=== PATIENT | female | born 1955 | race Caucasian/White ===

== ENCOUNTER 2023-01-13 05:48 | Inpatient (IN) | payer BC ==
[2023-01-07 15:13] LABS: EOSINOPHILS # (AUTO) 0.2 X10'3 (0-0.9); EOSINOPHILS % (AUTO) 4.5 % (0-6); LYMPHOCYTES # (AUTO) 1.7 X10'3 (1.1-4.8); LYMPHOCYTES % (AUTO) 37.4 % (21-51); MEAN CORPUSCULAR HEMOGLOBIN 32.3 PG (27.0-31.0); MEAN CORPUSCULAR HGB CONC 33.8 g/dL (33.0-36.5); MEAN CORPUSCULAR VOLUME 95.6 FL (78-98); MEAN PLATELET VOLUME 8.5 FL (7.4-10.4); MONOCYTES # (AUTO) 0.4 X10'3 (0-0.9); MONOCYTES % (AUTO) 7.9 % (2-12); NEUTROPHILS # (AUTO) 2.3 X10'3 (1.8-7.7); NEUTROPHILS % (AUTO) 49.2 % (42-75); PRE OP HEMATOCRIT 37.1 % (35.0-45.0); PRE OP HEMOGLOBIN 12.5 g/dL (12.0-16.0); PRE OP PLATELET COUNT 167 X10'3 (140-440); RED BLOOD COUNT 3.88 X10'6 (4.20-5.60); RED CELL DISTRIBUTION WIDTH 13.9 % (11.5-14.5)
[2023-01-07 15:29] LABS: ALBUMIN 4.1 G/DL (3.4-5.0); ALBUMIN/GLOBULIN RATIO 1.4 (1.1-1.5); ALKALINE PHOSPHATASE 58 IU/L (46-116); BLOOD UREA NITROGEN 19 MG/DL (7-18); BUN/CREATININE RATIO 37.3 (10.0-20.0); CALCIUM 8.8 MG/DL (8.5-10.1); CHLORIDE 106 MMOL/L (99-107); CREATININE 0.51 MG/DL (0.40-0.90); PRE OP ANION GAP 6 (8-16); PRE OP AST 15 U/L (10-37); PRE OP BILIRUB, TOTAL 0.5 MG/DL (0.0-1.0); PRE OP GLUCOSE 91 MG/DL (70-104); PRE OP POTASSIUM 4.1 MMOL/L (3.4-5.1); PRE OP SODIUM 140 MMOL/L (135-145); TOTAL CARBON DIOXIDE 27.9 MMOL/L (24-32); TOTAL PROTEIN 7.1 G/DL (6.4-8.2); eGFR > 90 ML/MIN
[2023-01-07 15:47] LABS: PRE OP ALT 7 U/L (30-65)
[2023-01-13] VITALS (25 sets, daily range): BP systolic 93–127; BP diastolic 38–66
[~2023-01-13] VITALS: Ht 157.5 cm; Wt 54.3 kg
[~2023-01-13 05:48] MED LIST: ALBU18HF2 INH; ALEN70TA37 PO; CARB-321 PO; CARB-395 PO; CHOL200074 PO; FLUT12AE9 PO; MAGN250T11 PO; MULT-1189 PO; ONDA4TAB12 PO; POLY119P2 PO; albuterol 2.5 MG/3 ML nebule NEB ONE; clindamycin-Cleocin 900mg/D5W 50 ML IV ONE; famotidine 20mg tablet PO ONE; ringers solution, lacted 1,000 ML IV SCH
[2023-01-13] MEDS ORDERED: BUPIVAcaine/PF 2.5 mg/ml (0.25%) 30ml vial ONE ×2 (06:41→07:02)
[2023-01-13] MEDS ORDERED: BUPIVACAINE liposomal/PF 13.3 MG/ML vial IM ONE (07:02)
[2023-01-13] MEDS ORDERED: midazolam 1 mg/ML 2ml injection ONE (07:40)
[2023-01-13] MEDS ORDERED: fentaNYL/PF 50MCG/1 ML 2ML syringe ONE (07:40)
[2023-01-13] MEDS ORDERED: propofol inj 20 ML IV ONE (07:41)
[2023-01-13] MEDS ORDERED: rocuronium 10mg/ml inj IV ONE (07:42)
[2023-01-13] MEDS ORDERED: dexamethasone sod phosphate 4mg/ml inj. ONE (07:48)
[2023-01-13] MEDS ORDERED: ringers solution, lacted 1,000 ML IV SCH (08:50)
[2023-01-13] MEDS ORDERED: meperidine/PF 25mg/ml syringe IV PRN ×2 (08:50)
[2023-01-13] MEDS ORDERED: proCHLORperazine 10 MG/2 ml inj IV PRN (08:50)
[2023-01-13] MEDS ORDERED: morphine 2 MG/ML inj. syringe IV PRN (08:50)
[2023-01-13] MEDS ORDERED: morphine 4 MG/ML inj SYRINge IV PRN (08:50)
[2023-01-13] MEDS ORDERED: ondansetron/PF 4mg/2ml inj IV PRN (08:50)
[2023-01-13] MEDS ORDERED: LIDOcaine-PF 1% 20mL vial 20 ML VIAL IJ ONE (10:00)
[2023-01-13] MEDS ORDERED: ondansetron/PF 4mg/2ml inj ONE (10:09)
[2023-01-13] MEDS ORDERED: acetaminophen 1,000mg/100ml IV 100 ML IV ONE (10:09)
[2023-01-13] MEDS ORDERED: sugammadex 200mg/2ml injection IV ONE (10:12)
[2023-01-13] MEDS: meperidine/PF 25mg/ml syringe IV PRN ×4 (10:32→19:07)
--- NOTE | 2023-01-13 10:35 | NUR ---
Received from OR via [facility], accompanied by Anesthesiologist DR DIANA and report given by Anesthesiologist. PT IS GROGGY BUT RESPONDS TO VERBAL STIMULI. PT PLACED ON BEDSIDE MONITOR, VSS. PT IS IN SR WITH RATE IN 80'S. PT RECEIVING 8L O2 TO MASK, TOLERATING WELL WITH O2 SAT >96%. WILL TITRATE DOWN AT PT TOLERATES. PT HAS 20G PIV TO LEFT FA WITH LR INFUSING ORDERED. PT HAS BANDAIDS TO LEFT ABD WITH ABD IN PLACE AND CDI. PT IS RESTING WITH NO S/S OF DISTRESS NOTED AT THIS TIME. WILL CONTINUE TO ASSESS.
[2023-01-13] MEDS ORDERED: naloxone 0.4 mg/ml inj IV PRN (10:45)
[2023-01-13] MEDS ORDERED: normal saline 1000ml 1,000 ML IV SCH (10:45)
[2023-01-13] MEDS: ringers solution, lacted 1,000 ML IV SCH ×3 (10:45→20:45)
[2023-01-13] MEDS ORDERED: albuterol 2.5 MG/3 ML nebule NEB PRN (10:50)
[2023-01-13] MEDS ORDERED: polyethylene glycol 3350 17gm powd pack PO PRN (10:50)
[2023-01-13] MEDS: HYDROmorph/NS 0.2 mg/ml PCA 100 ML IV SCH ×7 (12:13→23:00)
--- NOTE | 2023-01-13 12:39 | NUR ---
Patient in room . I have received report from Rios SAMPSON and had the opportunity to ask questions and will assume care when pt arrives on unit.
--- NOTE | 2023-01-13 12:50 | NUR ---
PATIENT HAS MET ALL CRITERIA FOR TRANSFER TO THE SURGICAL FLOOR. VSS. DRESSINGS INTACT. BED LOW, CALL LIGHT PRESENT AND 2 RAILS UP. DAVINA RN PRESENT TO ACCEPT CARE OF PATIENT AND REPORT HAS BEEN CALLED. ALL QUESTIONS ANSWERED TO ACCEPTING RN.
[2023-01-13] MEDS: carbidoba-levodopa 25-100mg tablet PO SCH ×3 (13:59→21:00)
--- NOTE | 2023-01-13 16:00 | NUR ---
[place] documentation: I have reviewed and agree with all interventions, assessments performed and documented by Brooklyn SAMPSON .
--- NOTE | 2023-01-13 16:00 | NUR ---
[place] Medication Administration: For this medication-pass time frame, all medication were reviewed, dispensed, administered and documented per hospital policy by Sai SAMPSON.
[2023-01-13] MEDS: ondansetron 4mg rapidly disintigrating tab PO PRN (17:58)
--- NOTE | 2023-01-13 18:35 | NUR ---
Problems reprioritized. Patient report given, questions answered & plan of care reviewed with Nancy SAMPSON.
[2023-01-13] MEDS: docusate sod 100mg capsule PO SCH (19:54)
[2023-01-13] MEDS: sennosides/docusate sodium tablet PO SCH (19:54)
[2023-01-13] MEDS: heparin, porcine 5000 units/ml vial SQ SCH (20:00)
[2023-01-13] MEDS: budesonide 0.5mg/2ml UD nebule IH SCH (20:05)
[2023-01-13] MEDS ORDERED: carbidoba-levodopa 25-100mg tablet PO SCH (21:00)
[2023-01-14] MEDS: HYDROmorph/NS 0.2 mg/ml PCA 100 ML IV SCH ×3 (01:00→05:00)
[2023-01-14] MEDS: ringers solution, lacted 1,000 ML IV SCH ×2 (02:59→06:45)
[2023-01-14 05:00] VITALS: BP 107/48
[2023-01-14] MEDS: ondansetron 4mg rapidly disintigrating tab PO PRN (05:18)
--- NOTE | 2023-01-14 06:00 | NUR ---
PT WAS NAUSEOUS AND VOMITING ESPECIALLY WHEN GETTING UP OUT OF BE AND WAS UNABLE TO WALK.
--- NOTE | 2023-01-14 06:45 | NUR ---
Patient in room [facility]TH[facility] 4024. I have received report from Nancy SAMPSON and had the opportunity to ask questions and assume patient care.
--- NOTE | 2023-01-14 06:58 | NUR ---
Problems reprioritized. Patient report given, questions answered & plan of care reviewed with JOCELINE MITCHELL.
[2023-01-14] MEDS ORDERED: ondansetron/PF 4mg/2ml inj IV PRN (07:15)
[2023-01-14] MEDS: traMADol 50MG tablet PO PRN ×3 (07:17→15:47)
[2023-01-14] MEDS: heparin, porcine 5000 units/ml vial SQ SCH (08:00)
[2023-01-14] MEDS: sennosides/docusate sodium tablet PO SCH (08:00)
[2023-01-14] MEDS ORDERED: LEVODOPA PO SCH ×3 (08:00→21:00)
[2023-01-14] MEDS: docusate sod 100mg capsule PO SCH (08:00)
[2023-01-14] MEDS ORDERED: CARBIDOPA PO SCH ×3 (08:00→21:00)
[2023-01-14] MEDS ORDERED: [UNRECOGNIZED DRUG - OTHER] PO SCH ×2 (08:00→10:17)
[2023-01-14] MEDS ORDERED: ondansetron/PF 4mg/2ml inj IM ONE (08:10)
[2023-01-14] MEDS: budesonide 0.5mg/2ml UD nebule IH SCH (08:13)
[2023-01-14] MEDS ORDERED: PCA WASTE DOCUMENTATION 1 MG ML MC PRN (10:10)
[2023-01-14 11:00] VITALS: BP 111/57
[2023-01-14] MEDS ORDERED: TRAM50TA2 PO ×2 (16:17→16:23)
--- NOTE | 2023-01-14 17:18 | NUR ---
Patient walked with nursing staff 800 + feet with front-wheel walker. Tolerated full regular food. Tramadol given for pain. Dr. Deluca discharged patient home with follow up instructions for two weeks. All discharge paper work and education provided to patient. Pain medications sent to patient preferred pharmacy. At time of discharge full packet would not print for patient MD aware. Charge nurse aware. All medications printed out and highlighted. All patient belongings left wwith patient. Patient accompanied by home.
--- NOTE | 2023-01-14 18:00 | NUR ---
I have reviewed and agree w/ interventions, assessments, and documentation by Brenna Ribeiro LVN.
== END 2023-01-14 17:30 | disposition home or self-care (01) | DRG 337 ==
LOC: PAS 05:48 → SUR 3N 10:46 → ORTHO 4S 01-14 10:42
PROVIDERS: ADMIT Surgery; ATTEND Surgery
PROC: 0DN84ZZ Release Small Intestine, Percutaneous Endoscopic Approach (ICD-10-PCS; 2023-01-13)
PROC: 0DNL4ZZ Release Transverse Colon, Percutaneous Endoscopic Approach (ICD-10-PCS; 2023-01-13)
PROC: 0DNW4ZZ Release Peritoneum, Percutaneous Endoscopic Approach (ICD-10-PCS; 2023-01-13)
PROC: 0WUF4JZ Supplement Abdominal Wall with Synthetic Substitute, Percutaneous Endoscopic Approach (ICD-10-PCS; 2023-01-13)
PROC: 8E0W4CZ Robotic Assisted Procedure of Trunk Region, Percutaneous Endoscopic Approach (ICD-10-PCS; 2023-01-13)
PROC: 3E0T3BZ Introduction of Anesthetic Agent into Peripheral Nerves and Plexi, Percutaneous Approach (ICD-10-PCS; 2023-01-13)
PROC: 0DNU4ZZ Release Omentum, Percutaneous Endoscopic Approach (ICD-10-PCS; principal; 2023-01-13 07:34)
DX: K43.0 Incisional hernia with obstruction, without gangrene (principal); K66.0 Peritoneal adhesions (postprocedural) (postinfection); Z79.51 Long term (current) use of inhaled steroids; Z88.1 Allergy status to other antibiotic agents; Z79.899 Other long term (current) drug therapy
CPT/HCPCS: 36415; 80053; 82948; 85025; 94640; 94760; A4215; A4618; C1713; C1781; C9290; G0378; J0131; J1100; J1170; J1644; J2175; J2250; J2405; J2704; J3010; J3490; J7030; J7120